=== PATIENT | male | born 1965 | race Caucasian/White ===

== ENCOUNTER 2019-06-15 18:31 | Emergency (ER) | payer OTHER ==
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
[2019-06-15 18:47] VITALS: BP 124/82; PULSE 68; TEMP 98.4
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
[2019-06-15] MEDS ORDERED: IBUPROFEN 600 MG TABLET (FP) PO ONE ×2 (18:59)
== END 2019-06-15 19:46 | disposition home or self-care (01) ==
LOC: JERFT 18:31
DX: S39.82XA Other specified injuries of lower back, initial encounter (principal); S89.82XA Other specified injuries of left lower leg, initial encounter; V54.5XXA Driver of pick-up truck or van injured in collision with heavy transport vehicle or bus in traffic accident, initial encounter; Y92.414 Local residential or business street as the place of occurrence of the external cause; Y93.89 Activity, other specified; Y99.8 Other external cause status; E78.00 Pure hypercholesterolemia, unspecified
CPT/HCPCS: 73562-TC-LT-FY; 99281-25

== ENCOUNTER 2020-09-14 08:24 | Emergency (ER) | payer OTHER ==
[2020-09-14 08:33] VITALS: BP 152/94; PULSE 83; BMI 30.2
[2020-09-14 09:21] VITALS: TEMP 97.2
[2020-09-14] MEDS ORDERED: KETOROLAC TROMETHAMINE 30 MG/1 ML VIAL IM ONE (09:28)
[2020-09-14] MEDS ORDERED: KETOROLAC TROMETHAMINE 30 MG/1 ML VIAL ONE (09:30)
== END 2020-09-14 09:56 | disposition home or self-care (01) ==
LOC: JERFT 08:24 → JER 08:24 → JERFT 09:56
PROC: 3E0233Z Introduction of Anti-inflammatory into Muscle, Percutaneous Approach (ICD-10-PCS; principal; 2020-09-14)
DX: M54.41 Lumbago with sciatica, right side (principal)
CPT/HCPCS: 99284-25